=== PATIENT | male | born 1990 | race Caucasian/White ===

== ENCOUNTER 2022-07-03 13:47 | Emergency (ER) | payer OTHER, BC ==
[~2022-07-03] VITALS: Ht 167.6 cm; Wt 77.6 kg
[2022-07-03] MEDS ORDERED: IBUPROFEN 600MG TAB PO ONE (18:00)
[2022-07-03] MEDS ORDERED: LIDOCAINE 4% CREAM 5GM (LMX4) TOP ONE (18:00)
[2022-07-03] MEDS ORDERED: LIDO1CRE2 TOP (18:42)
[2022-07-03] MEDS ORDERED: NAPR-837 PO (18:42)
[2022-07-03 18:48] VITALS: BP 131/81
== END 2022-07-03 19:04 | disposition home or self-care (01) ==
LOC: M ED 13:47
DX: S49.91XA Unspecified injury of right shoulder and upper arm, initial encounter (principal); W01.0XXA Fall on same level from slipping, tripping and stumbling without subsequent striking against object, initial encounter; Y92.9 Unspecified place or not applicable; Y93.9 Activity, unspecified; Y99.0 Civilian activity done for income or pay

== ENCOUNTER → 2024-01-08 | Outpatient (CLI) | payer OTHER ==
[~2024-01-08] MED LIST: LIDO1CRE2 TOP; NAPR-837 PO
== END ==
LOC: M WUC 11:12
PROVIDERS: ATTEND Family Medicine
DX: M54.50 Low back pain, unspecified (principal)